=== PATIENT | male | born 1990 | race Caucasian/White ===

== ENCOUNTER 2018-12-31 16:58 | Emergency (ER) | payer OTHER ==
--- NOTE | 2018-12-31 18:18 | ED Physician Documentation ---
History of Present Illness - Stated complaint Stated Complaint: LT ARM PX/WORK INJ - Chief complaint Chief Complaint: Ext Problem - History obtained from History obtained from: Patient - History of Present Illness Timing: Prior to arrival - Additonal information Additional information: Patient is a previously healthy left-handed male presenting with left shoulder and biceps pain after fall onto the left shoulder while playing football. Patient reports that he landed directly onto the left shoulder and has pain in the anterior aspect, as well as the lower aspect of his biceps. He denies other areas of pain to left upper extremity, but does have reduced range of motion at the shoulder. 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 No lacerations or abrasions. No striking of head, loss of consciousness, or other injury. No other improving or worsening factors noted. Review of Systems GI: denies: Abdominal Pain Skin: denies: Rash, Abrasion (s) Musculoskeletal: denies: Neck pain, Back pain Neurologic: denies: Focal weakness, Numbness, Headache, Head injury, LOC PD PAST MEDICAL HISTORY - Past Medical History Past Medical History: No Cardiovascular: None Respiratory: None Neuro: None Endocrine/Autoimmune: None GI: None : None HEENT: None Psych: None Musculoskeletal: None Derm: None - Past Surgical History Past Surgical History: No - Allergies Allergies/Adverse Reactions: Allergies Allergy/AdvReac Type Severity Reaction Status Date / Time No Known Drug Allergies Allergy Verified 12/31/18 17:05 - Social History Does the pt smoke?: No Smoking Status: Never smoker Does the pt drink ETOH?: Yes Does the pt have substance abuse?: No - Immunizations Immunizations are current?: Yes - POLST Patient has POLST: No PD ED PE NORMAL - Vitals Vital signs reviewed: Yes - General General: Alert and oriented X 3, No acute distress, Well developed/nourished - HEENT HEENT: Atraumatic, Moist mucous membranes - Neck Neck: No bony TTP - Cardiac Cardiac: Strong equal pulses - Respiratory Respiratory: No respiratory distress - Back Back: No spinal TTP - Extremities Extremities: No deformity, No tenderness to palpate (Tenderness to palpation at left anterior shoulder but not throughout left scapula, clavicle, AC joint. No palpable biceps bulging or tenderness. No change in sensation to left upper extremity, but reduced range of motion at left shoulder particularly in abduction.) - Neuro Neuro: Alert and oriented X 3, No motor deficit, No sensory deficit, Other (Except as stated above) - Psych Psych: Normal mood, Normal affect Results - Vitals Vitals: Vital Signs - 24 hr 12/31/18 12/31/18 17:03 19:36 Temperature 36.2 C L Heart Rate 102 H 97 Respiratory 19 18 Rate Blood Pressure 188/98 H 168/95 H O2 Saturation 98 97 Oxygen O2 Source Room air PD MEDICAL DECISION MAKING - ED course Complexity details: reviewed results, re-evaluated patient, considered differential, d/w patient ED course: Patient presenting with isolated injury to the left upper extremity. Do not find bony deformity to indicate AC separation or dislocation, but plan to obtain plain films. Also lower suspicion for fracture, but considered. Did discuss possibility of biceps tendon tear although no obvious rupture found on exam. Additionally discussed possible rotator cuff injury with patient as well. Patient did not require medications while in the ED and all plain films returned unremarkable. Place patient in sling and recommended close follow-up with primary care physician and orthopedic surgery to further evaluate for possible etiologies as stated above. Otherwise, feel that patient is safe to discharge home with sling, supportive cares, strict return precautions, and appropriate follow-up. Departure - Departure Disposition: 01 Home, Self Care Clinical Impression: Pain of upper extremity Condition: Good Instructions: ED Torn Rotator Cuff, ED Strain Muscle Ext Follow-Up: Lee Lou MD [Provider Admit Priv/Credential] - Comments: Recommend ice, elevation, use of sling for comfort, as well as ibuprofen/Tylenol. Please follow-up with primary care physician in next 2 to 3 days and consider contacting orthopedic surgery or going through the system to obtain orthopedic follow-up to further evaluate for possible internal shoulder injury such as rotator cuff injury, as well as biceps tear. Return to ED sooner if experience worsening symptoms or have other concerns. Discharge Date/Time: 12/31/18 19:42
--- NOTE | 2018-12-31 19:21 | XRAY Report ---
Reason: Left elbow pain Procedure Date: 12/31/2018 Accession Number: [id number] / [id number] Procedure: XR - Elbow 3 View LT CPT Code: FULL RESULT: EXAM: LEFT ELBOW RADIOGRAPHY EXAM DATE: 12/31/2018 07:06 PM. CLINICAL HISTORY: Left elbow pain. COMPARISON: None. TECHNIQUE: 3 views. FINDINGS: Bones: Normal. No fractures or bone lesions. Joints: Normal. No effusion. No subluxation. Soft Tissues: Normal. No soft tissue swelling. IMPRESSION: Normal elbow radiography. [facility]
--- NOTE | 2018-12-31 19:22 | XRAY Report ---
Reason: fall onto left shoulder while playing football Procedure Date: 12/31/2018 Accession Number: [id number] / [id number] Procedure: XR - Shoulder 3 View LT CPT Code: FULL RESULT: EXAM: LEFT SHOULDER RADIOGRAPHY EXAM DATE: 12/31/2018 07:06 PM. CLINICAL HISTORY: Fall onto left shoulder while playing football. COMPARISON: None. TECHNIQUE: 3 views. FINDINGS: Bones: Normal. No fracture or bone lesion. Joints: The glenohumeral and acromioclavicular joints are normal. Soft tissues: The visualized hemithorax is unremarkable. No soft tissue swelling. IMPRESSION: Normal shoulder radiography. [facility]
[2018-12-31 19:37] VITALS: BP 168/95
== END 2018-12-31 19:42 | disposition home or self-care (01) ==
LOC: ED 16:58
DX: M25.512 Pain in left shoulder (principal)
CPT/HCPCS: 99282; 99284